=== PATIENT | male | born 1980 | race Hispanic/Latino ===

== ENCOUNTER 2022-09-30 17:53 | Emergency (ER) | payer SELFPAY ==
[2022-09-30] MEDS ORDERED: Lidocaine 1% w/Epinephrine 1:100K 20 ML VIAL ONE (20:00)
== END 2022-09-30 21:36 | disposition home or self-care (01) ==
LOC: ERS 17:53
DX: K61.1 Rectal abscess (principal)
CPT/HCPCS: 46040